=== PATIENT | female | born 1960 | race American Indian/Alaskan Native ===

== ENCOUNTER 2017-04-14 11:22 | Emergency (ER) | payer OTHER ==
[2017-04-14 12:49] LABS: Albumin 3.3 g/dL (3.9-5); Albumin/Globulin Ratio 0.7 %; BUN/Creatinine Ratio 18.57; Bilirubin,Total 0.2 mg/dL (0.1-1.2); Chloride 99.2 mmol/L (98-107); Potassium 4.1 mmol/L (3.6-5.0); Total Protein 7.9 g/dL (6.3-8.2)
[2017-04-14 12:54] LABS: Basophils % (Auto) 0.3 % (0.0-1.8); Mean Corpuscular HGB Conc 30 % (30-34); Platelet Count 462 K/mm3 (140-440); Red Blood Count 2.76 M/mm3 (3.65-5.03); Red Cell Distribution Width 18.7 % (13.2-15.2); White Blood Count 15.8 K/mm3 (4.5-11.0)
[2017-04-14 13:02] LABS: Hematocrit 18.4 % (30.3-42.9); Hemoglobin 5.5 gm/dl (10.1-14.3)
[2017-04-14 13:03] LABS: Mean Corpuscular Hemoglobin 20 pg (28-32); Mean Corpuscular Volume 67 fl (79-97)
[2017-04-14 13:37] LABS: Bacteria,Urine 1+ /HPF (Negative); Bilirubin,Urine NEG (Negative); Blood,Urine LG (Negative); Ketones,Urine NEG (Negative); Leukocyte Esterase,Urine NEG (Negative); Mucus,Urine FEW /HPF; Nitrite,Urine NEG (Negative); Urobilinogen,Urine < 2.0 mg/dL (<2.0)
[2017-04-14] MEDS ORDERED: ZOFRAN ODT PO ONE (13:43)
--- NOTE | 2017-04-14 14:16 | Emergency Department Report ---
HPI - General Chief Complaint: Abdominal Pain Time Seen by Provider: 04/14/17 13:19 - HPI HPI: This is a 56-year-old Afro-[place] Citizen female presents to the emergency department from home with complaint of a 2 day history of nausea, vomiting, diarrhea. Patient also has been having some moderate vaginal bleeding. She says that she has a history of fibroids but also says that it was never actually diagnosed. She denies any chest pain, shortness of breath, headache but does have some generalized and/or nonspecific weakness and/or fatigue. The patient has a history of anemia but has never required a blood transfusion. She also refuses to have any blood transfusions, not for scientology reasons, but she feels that there is long-term sequela from transfusions that she does not want to be a part of. She has not taken anything for symptoms prior to presentation. She does not have a primary care physician. No recent travel or sick contacts at home. ED Past Medical Hx - Past Medical History Previous Medical History?: Yes Additional medical history: Anemia. PE - Social History Smoking Status: Never Smoker Substance Use Type: None - Medications Home Medications: Home Medications Medication Instructions Recorded Confirmed Last Taken Type No Known Home Medications [No 04/14/17 04/14/17 Unknown History Reported Home Medications] ED Review of Systems ROS: Stated complaint: N/V/D Other details as noted in HPI Comment: All other systems reviewed and negative Constitutional: weakness. denies: chills, fever Eyes: denies: eye pain, eye discharge, vision change ENT: denies: ear pain, throat pain Respiratory: denies: cough, shortness of breath, wheezing Cardiovascular: denies: chest pain, palpitations Gastrointestinal: nausea, vomiting, diarrhea Genitourinary: other (vaginal bleeding). denies: dysuria, discharge Musculoskeletal: denies: back pain, joint swelling, arthralgia Skin: denies: rash, lesions Neurological: denies: headache, numbness, paresthesias Physical Exam - Physical Exam Vital Signs: Vital Signs 04/14/17 11:56 Temperature 98.6 F Pulse Rate 97 H Respiratory 20 Rate Blood Pressure 138/96 O2 Sat by Pulse 100 Oximetry Physical Exam: GENERAL: The patient is well-developed well-nourished. HEENT: Normocephalic. Atraumatic. Extraocular motions are intact. Patient has moist mucous membranes. Pupils equal reactive to light bilaterally. Pale conjunctiva. NECK: Supple. Trachea is midline. CHEST/LUNGS: Clear to auscultation. There is no respiratory distress noted. HEART/CARDIOVASCULAR: Regular. There is no tachycardia. There is no gallop rub or murmur. ABDOMEN: Abdomen is soft, nontender. Patient has normal bowel sounds. There is no abdominal distention. SKIN: Skin is warm and dry. NEURO: The patient is awake, alert, and oriented. The patient is cooperative. The patient has no focal neurologic deficits. The patient has normal speech and gait. MUSCULOSKELETAL: There is no tenderness or deformity. There is no limitation range of motion. There is no evidence of acute injury. : There is some dark coagulated blood seen in the vaginal vault. There is a moderate size soft tissue mass that appears to be coming off of the cervix. ED Course Vital Signs 04/14/17 11:56 Temperature 98.6 F Pulse Rate 97 H Respiratory 20 Rate Blood Pressure 138/96 O2 Sat by Pulse 100 Oximetry - Consultations Consultation #1: I spoke to the [employer] special education administrator, Dr. Lo Baez, regarding the patient's uterine fibroids, anemia and cervical mass. Dr. Baez feels that the patient needs a gynecological oncologist and recommends [facility]. I spoke with [facility] and was able to speak with a record pressman, Dr. Campbell, who has accepted the patient for transfer to the [facility] emergency Department. 04/14/17 18:28 ED Medical Decision Making - Lab Data Result diagrams: 04/14/17 12:11 04/14/17 12:11 - Radiology Data Radiology results: report reviewed Transvaginal ultrasound shows uterine fibroid disease. Normal ovaries. The cervix is abnormal. A cervical mass is difficult to exclude. CT of the abdomen and pelvis without contrast shows multiple large uterine fibroids. There is a prominent soft tissue density in the cervix that is present. A mass lesion cannot be excluded. Areas in the periphery of this mass may represent necrosis or less likely infection. Hematoma may partially explain his findings. 3 small hypodensities in the liver are probably benign but may need further evaluation. Bilateral hypodensities in the kidney. Cholelithiasis. - Medical Decision Making 56-year-old female presents with a two-week history of nausea, vomiting, diarrhea and "hemorrhage" which has been vaginal bleeding. She presents with a hemoglobin of 5.5. I have had long discussions with the patient about the need for a transfusion but she refuses a transfusion despite knowing that a lack of transfusion could lead to worsening anemia, [place], CVA, . I went to workup the patient's anemia and vaginal bleeding and got an ultrasound that showed uterine fibroids but also concern for a cervical mass. They recommended a CT scan. I was unable to use contrast secondary to her renal insufficiency but without contrast it was still seen that there were multiple large uterine fibroids and a moderate to large sized cervical mass with some concern for air in the cervical wall circumferentially. Vital signs stable throughout her ED course. Patient will be transferred to [facility] for further evaluation and treatment. - Differential Diagnosis uterine fibroids, dysfunction uterine bleeding, cervical mass, malignancy Critical Care Time: No Critical care attestation.: If time is entered above; I have spent that time in minutes in the direct care of this critically ill patient, excluding procedure time. ED Disposition Clinical Impression: Symptomatic anemia, Cervical mass Uterine fibroid Qualifiers: Uterine leiomyoma location: unspecified location Qualified Code(s): D25.9 - Leiomyoma of uterus, unspecified Disposition: DC/TX-70 ANOTHER TYPE [facility] Is pt being admited?: No Condition: Fair Instructions: Abdominal Pain (ED) Referrals: PRIMARY CARE, [Primary Care Provider] - 3-5 Days Time of Disposition: 18:31
--- NOTE | 2017-04-14 15:09 | Ultrasound Report ---
ULTRASOUND PELVIS DUPLEX DOPPLER COMPLETE ULTRASOUND TRANSVAGINAL HISTORY: Vaginal bleeding. TECHNIQUE: Transabdominal and transvaginal ultrasound with color and spectral doppler interrogation. The uterus is enlarged and heterogeneous measuring 16 x 7 x 9 cm. A posterior wall submucosal fibroid measures 5.1 cm. A posterior fundal subserosal fibroid measures 5.2 cm. The endometrium is difficult to identify secondary to fibroid disease but appears normal thickness. The ovaries are normal size, contour and echotexture. No adnexal cyst or mass. Spectral wave forms demonstrate arterial flow to both ovaries. The cervix appears abnormal. The cervix is enlarged and heterogeneous with increased flow on color Doppler. A cervical mass is difficult to exclude. IMPRESSION: Uterine fibroid disease. Normal ovaries. The cervix is abnormal. A cervical mass is difficult to exclude. Consider further evaluation with CT or MRI with contrast or direct visualization.
--- NOTE | 2017-04-14 16:58 | Cat Scan Report ---
CT of the abdomen and pelvis without contrast. History: Cervical mass. Findings: There are 3 subcentimeter round hypodensities within the liver, 2 in the right lobe and one in the left lobe. The overall size of the liver is normal. The configuration is also normal. The spleen and pancreas are normal. A prominent calcified gallstone is present. The wall the gallbladder is not thickened. The left adrenal gland is prominent in size. The kidneys are normal in size. There is a 1.2 cm round hypodensity in the upper pole of the right kidney. There is a 1.9 cm round hypodensity in the midpole of the left kidney posteriorly. There is no hydronephrosis and no renal calcifications are seen. There multiple large heterogeneous uterine fibroids several of which have coarse calcifications within them. In addition, the cervix is markedly enlarged measuring approximately 8 x 6 x 7 cm. There is an unusual finding with the presence of air within the wall of the cervix circumferentially. The density is somewhat heterogeneous. No free air is identified. The adnexal regions are unremarkable. Multiple diverticula are seen within the colon with no evidence of diverticulitis. Impression: 1. In addition to multiple large uterine fibroids, a prominent soft tissue density in the cervix is present. A mass lesion cannot be excluded. Air in the periphery of this mass may represent necrosis or less likely infection. Hematoma may partially explain these findings. Clinical correlation and direct visualization is advised. 2. 3 small hypodensities in the liver are probably benign but may need further evaluation including CT with IV contrast based on the findings in the cervix. 3. Bilateral hypodensities in the kidney are inadequately evaluated. CT with contrast is recommended. 4. Cholelithiasis. 5. Prominent left adrenal gland is consistent with a benign process. 6. Diverticulosis coli, but no diverticulitis.
[2017-04-14 19:54] VITALS: BP 143/70
== END 2017-04-14 20:59 | disposition other institution (70) ==
LOC: ED 11:22
DX: D25.9 Leiomyoma of uterus, unspecified (principal); D64.9 Anemia, unspecified
CPT/HCPCS: 36415; 74176; 76830; 80053; 81001; 83690; 84703; 85025; 93975; 99285; Q0162